=== PATIENT | male | born 1940 | race Caucasian/White ===

== ENCOUNTER 2021-01-20 13:31 | Inpatient (IN) | payer MEDICARE ==
[~2021-01-20] VITALS: Ht 177.8 cm; Wt 92.7 kg
[2021-01-20 14:40] LABS: BASOPHILS % (AUTO) 0.1 % (0-1); EOSINOPHILS % (AUTO) 0.1 % (0-6); HEMATOCRIT 37.8 % (42.0-52.0); HEMOGLOBIN 12.5 g/dl (14.0-17.9); LYMPHOCYTES # (AUTO) 1.2 X10'3 (1.1-4.8); LYMPHOCYTES % (AUTO) 7.2 % (21-51); MEAN CORPUSCULAR HEMOGLOBIN 30.2 PG (27.0-31.0); MEAN CORPUSCULAR HGB CONC 33.1 g/dL (33.0-36.5); MEAN CORPUSCULAR VOLUME 91.1 FL (78-98); MEAN PLATELET VOLUME 9.2 FL (7.4-10.4); MONOCYTES # (AUTO) 1.4 X10'3 (0-0.9); MONOCYTES % (AUTO) 8.3 % (2-12); NEUTROPHILS % (AUTO) 84.3 % (42-75); PLATELET COUNT 164 X10'3 (140-440); RED BLOOD COUNT 4.15 X10'6 (4.70-6.10); RED CELL DISTRIBUTION WIDTH 14.8 % (11.5-14.5); WHITE BLOOD COUNT 16.6 X10'3 (4.5-11.0)
[2021-01-20 14:57] LABS: ALANINE AMINOTRANSFERASE 165 U/L (12-78); ALBUMIN 2.5 G/DL (3.4-5.0); ALBUMIN/GLOBULIN RATIO 0.8 (1.1-1.5); ALKALINE PHOSPHATASE 396 IU/L (46-116); ANION GAP 9 (8-16); ASPARTATE AMINO TRANSFERASE 130 U/L (10-37); BILIRUBIN,TOTAL 3.6 MG/DL (0.1-1.0); BLOOD UREA NITROGEN 19 MG/DL (7-18); BUN/CREATININE RATIO 14.3 (5.4-32.0); CALCIUM 8.4 MG/DL (8.5-10.1); CHLORIDE 106 MMOL/L (99-107); CREATININE 1.33 MG/DL (0.60-1.10); GLUCOSE 112 MG/DL (70-104); LIPASE < 50 U/L (73-393); POTASSIUM 3.4 MMOL/L (3.5-5.1); SODIUM 139 MMOL/L (135-145); TOTAL CARBON DIOXIDE 24.4 MMOL/L (24-32); TOTAL PROTEIN 5.6 G/DL (6.4-8.2); eGFR 52 ML/MIN
[2021-01-20] MEDS ORDERED: magnesium hydroxide 30ml (MOM) UD suspension PO PRN (15:05)
[2021-01-20] MEDS ORDERED: acetaminophen 325mg tablet PO PRN ×2 (15:05)
[2021-01-20] MEDS ORDERED: ondansetron/PF 4mg/2ml inj IV PRN (15:05)
[2021-01-20] MEDS ORDERED: magnesium 4gm in 100ml NS 100 ML IV PRN (15:05)
[2021-01-20] MEDS ORDERED: bisacodyl 10mg suppository rectal RC PRN (15:05)
[2021-01-20] MEDS ORDERED: morphine 2 MG/ML inj. syringe IV PRN ×2 (15:05)
[2021-01-20] MEDS ORDERED: diphenhydrAMINE 25mg capsule PO PRN (15:05)
[2021-01-20] MEDS ORDERED: acetaminophen 650mg rectal suppository RC PRN (15:05)
[2021-01-20] MEDS ORDERED: HYDROcodone/acetaminophen 5mg/325mg tablet PO PRN (15:05)
[2021-01-20] MEDS ORDERED: magnesium 2GM in 50ml NS 50 ML IV PRN (15:05)
[2021-01-20] MEDS ORDERED: magnesium Cl slow-release 64mg tablet PO PRN (15:05)
[2021-01-20] MEDS ORDERED: potassium Cl 20 mEq SR tablet PO PRN (15:05)
[2021-01-20] MEDS ORDERED: potassium Cl 40MEQ/1/2NS 520ml 520 ML IV PRN ×2 (15:05)
[2021-01-20] MEDS ORDERED: mag hydrox/Alum hydrox/simeth 30ml oral suspension PO PRN (15:05)
[2021-01-20] MEDS ORDERED: ATOR40TA72 PO (15:24)
[2021-01-20] MEDS ORDERED: DULO60CA65 PO (15:24)
[2021-01-20] MEDS ORDERED: MEMA5TAB42 PO (15:24)
[2021-01-20] MEDS ORDERED: OMEP-50 PO (15:24)
[2021-01-20] MEDS ORDERED: QUIN20TA18 PO (15:24)
[2021-01-20] MEDS ORDERED: CLOP75TA34 PO (15:24)
[2021-01-20] MEDS ORDERED: LANTUS SQ (15:24)
[2021-01-20] MEDS ORDERED: METF-438 PO (15:24)
[2021-01-20] MEDS ORDERED: DOCU-345 PO (15:24)
[2021-01-20] MEDS ORDERED: AMLO5TAB16 PO (15:24)
[2021-01-20] MEDS ORDERED: DULA1.5P SQ (15:24)
[2021-01-20] MEDS ORDERED: NEBI5TAB10 PO (15:24)
[2021-01-20] MEDS ORDERED: GLIP10TA11 PO (15:24)
[2021-01-20 16:19] LABS: HEMATOCRIT 38.2 % (42.0-52.0); HEMOGLOBIN 12.7 g/dl (14.0-17.9); MEAN CORPUSCULAR HGB CONC 33.2 g/dL (33.0-36.5); MEAN CORPUSCULAR VOLUME 90.5 FL (78-98); MEAN PLATELET VOLUME 9.4 FL (7.4-10.4); PLATELET COUNT 171 X10'3 (140-440); RED BLOOD COUNT 4.22 X10'6 (4.70-6.10); RED CELL DISTRIBUTION WIDTH 15.2 % (11.5-14.5); WHITE BLOOD COUNT 16.6 X10'3 (4.5-11.0)
[2021-01-20] MEDS: piperacillin/tazo 3.375gm/50ml 50 ML IV SCH (16:51)
[2021-01-20] MEDS: pantoprazole 40MG/NS 100ML BAG 100 ML IV SCH ×2 (16:51→21:21)
[2021-01-20] MEDS: normal saline 1000ml 1,000 ML IV SCH (16:52)
[2021-01-20] MEDS ORDERED: MESSAGE TO PHARMACY PO ONE (18:05)
[2021-01-20] MEDS ORDERED: glucagon, human recombinant 1mg kit SUBCUT PRN (18:05)
[2021-01-20] MEDS ORDERED: dextrose ORAL solution 15 GM/59 ML bottle PO PRN ×2 (18:05)
[2021-01-20] MEDS ORDERED: dextrose 50%-water 50ml dispensing syringe IV PRN ×2 (18:05)
[2021-01-20] MEDS: metoprolol tartrate 25mg tablet PO SCH (20:00)
[2021-01-20] MEDS: K and/or MAG REPLACEMENT MC SCH (20:00)
[2021-01-20] MEDS: pantoprazole 40 MG vial IV SCH (20:05)
[2021-01-20] MEDS: insulin glargine (Lantus) pen - multi-dose SQ SCH (21:26)
[2021-01-20] MEDS: docusate sod 100mg capsule PO SCH (21:37)
[2021-01-20] MEDS: memantine 5mg tablet PO SCH (21:37)
[2021-01-21] VITALS (16 sets, daily range): BP systolic 122–179; BP diastolic 73–94
[2021-01-21] MEDS: piperacillin/tazo 3.375gm/50ml 50 ML IV SCH ×3 (00:18→16:28)
[2021-01-21] MEDS: pantoprazole 40MG/NS 100ML BAG 100 ML IV SCH ×4 (01:00→16:37)
[2021-01-21] MEDS: normal saline 1000ml 1,000 ML IV SCH ×3 (01:09→20:56)
[2021-01-21 05:00] LABS: BASOPHILS % (AUTO) 0.3 % (0-1); EOSINOPHILS # (AUTO) 0.2 X10'3 (0-0.9); EOSINOPHILS % (AUTO) 1.9 % (0-6); HEMATOCRIT 35.8 % (42.0-52.0); HEMOGLOBIN 12.1 g/dl (14.0-17.9); LYMPHOCYTES # (AUTO) 1.6 X10'3 (1.1-4.8); LYMPHOCYTES % (AUTO) 12.7 % (21-51); MEAN CORPUSCULAR HEMOGLOBIN 30.3 PG (27.0-31.0); MEAN CORPUSCULAR HGB CONC 33.8 g/dL (33.0-36.5); MEAN CORPUSCULAR VOLUME 89.9 FL (78-98); MEAN PLATELET VOLUME 9.4 FL (7.4-10.4); MONOCYTES # (AUTO) 1.1 X10'3 (0-0.9); MONOCYTES % (AUTO) 8.3 % (2-12); NEUTROPHILS # (AUTO) 9.9 X10'3 (1.8-7.7); NEUTROPHILS % (AUTO) 76.8 % (42-75); PLATELET COUNT 153 X10'3 (140-440); RED BLOOD COUNT 3.98 X10'6 (4.70-6.10); RED CELL DISTRIBUTION WIDTH 15.3 % (11.5-14.5); WHITE BLOOD COUNT 12.8 X10'3 (4.5-11.0)
[2021-01-21 05:17] LABS: ALANINE AMINOTRANSFERASE 136 U/L (12-78); ALBUMIN 2.4 G/DL (3.4-5.0); ALBUMIN/GLOBULIN RATIO 0.7 (1.1-1.5); ALKALINE PHOSPHATASE 348 IU/L (46-116); ANION GAP 12 (8-16); ASPARTATE AMINO TRANSFERASE 96 U/L (10-37); BILIRUBIN,TOTAL 3.1 MG/DL (0.1-1.0); BLOOD UREA NITROGEN 19 MG/DL (7-18); BUN/CREATININE RATIO 12.2 (5.4-32.0); CALCIUM 8.5 MG/DL (8.5-10.1); CHLORIDE 106 MMOL/L (99-107); CHOL/HDL RATIO 2.6 (0.00-4.99); CHOLESTEROL 113 MG/DL (0-200); CREATININE 1.56 MG/DL (0.60-1.10); GLUCOSE 124 MG/DL (70-104); HDL CHOLESTEROL 43 MG/DL (35-60); LDL CHOLESTEROL 49 MG/DL (50-100); MAGNESIUM 1.8 MG/DL (1.5-2.4); PHOSPHORUS 3.5 MG/DL (2.3-4.5); POTASSIUM 3.2 MMOL/L (3.5-5.1); SODIUM 141 MMOL/L (135-145); TOTAL CARBON DIOXIDE 23.3 MMOL/L (24-32); TOTAL PROTEIN 5.8 G/DL (6.4-8.2); TRIGLYCERIDES 82 MG/DL (20-135); eGFR 43 ML/MIN
[2021-01-21] MEDS: K and/or MAG REPLACEMENT MC SCH ×2 (08:00→20:58)
[2021-01-21 08:13] LABS: HEMATOCRIT 37.6 % (42.0-52.0); HEMOGLOBIN 12.5 g/dl (14.0-17.9); MEAN CORPUSCULAR HGB CONC 33.4 g/dL (33.0-36.5); MEAN CORPUSCULAR VOLUME 89.9 FL (78-98); MEAN PLATELET VOLUME 9.3 FL (7.4-10.4); PLATELET COUNT 162 X10'3 (140-440); RED BLOOD COUNT 4.18 X10'6 (4.70-6.10); RED CELL DISTRIBUTION WIDTH 15.3 % (11.5-14.5); WHITE BLOOD COUNT 12.5 X10'3 (4.5-11.0)
[2021-01-21] MEDS: pantoprazole 40 MG vial IV SCH ×2 (09:28→20:55)
[2021-01-21] MEDS: docusate sod 100mg capsule PO SCH ×3 (09:56→20:56)
[2021-01-21] MEDS: duloxetine 30mg CAPSULE.DR PO SCH (09:56)
[2021-01-21] MEDS: atorvastatin 20mg tablet PO SCH (09:57)
[2021-01-21] MEDS: metoprolol tartrate 25mg tablet PO SCH ×2 (09:57→20:56)
[2021-01-21] MEDS: amLODIPine 5mg tablet PO SCH (09:57)
[2021-01-21] MEDS: lisinopril 20mg tablet PO SCH (09:58)
[2021-01-21 10:13] LABS: CLARITY,URINE CLEAR (Clear); COLOR,URINE YELLOW (Yellow); GLUCOSE, URINE NEGATIVE (Neg); KETONES,URINE NEGATIVE (Neg); LEUKOCYTE ESTERASE ,URINE NEGATIVE (Neg); NITRITES, URINE NEGATIVE (Neg); OCCULT BLOOD,URINE NEGATIVE (Neg); PROTEIN,URINE TRACE mg/dl (Neg)
[2021-01-21 10:15] LABS: UA COLLECTION TYPE NON-SPECIFIED
[2021-01-21 10:30] LABS: BACTERIA,URINE FEW /HPF (Neg); HYALINE CASTS 0-3 /LPF (NEGATIVE); RBC,URINE 0-2 /HPF (0-2); SQUAMOUS EPITHELIAL CELL,UR FEW /LPF (FEW); WBC,URINE 0-4 /HPF (0-4)
[2021-01-21 11:48] LABS: HEMATOCRIT 38.1 % (42.0-52.0); HEMOGLOBIN 12.8 g/dl (14.0-17.9); MEAN CORPUSCULAR HEMOGLOBIN 30.7 PG (27.0-31.0); MEAN CORPUSCULAR HGB CONC 33.5 g/dL (33.0-36.5); MEAN CORPUSCULAR VOLUME 91.6 FL (78-98); MEAN PLATELET VOLUME 9.3 FL (7.4-10.4); PLATELET COUNT 160 X10'3 (140-440); RED BLOOD COUNT 4.17 X10'6 (4.70-6.10); RED CELL DISTRIBUTION WIDTH 15.8 % (11.5-14.5); WHITE BLOOD COUNT 12.2 X10'3 (4.5-11.0)
[2021-01-21] MEDS: potassium Cl 20 mEq SR tablet PO PRN ×2 (13:34→20:55)
[2021-01-21] MEDS ORDERED: iohexol 300 MG/1 ML 50ml polymer ONE (15:45)
[2021-01-21] MEDS ORDERED: glucagon, human recombinant 1mg kit ONE ×2 (15:45→17:36)
--- NOTE | 2021-01-21 16:57 | NUR ---
PT TO OR FOR PROCEDURE.
--- NOTE | 2021-01-21 17:20 | NUR ---
Protonix gtt running at 8ml/hr not 20ml/hr which is what the IV spreadsheet is showing.
[2021-01-21] MEDS ORDERED: sevoflurane 250ml liquid IH ONE (17:36)
[2021-01-21] MEDS ORDERED: fentaNYL/PF 50MCG/1 ML 2ML syringe ONE (17:37)
[2021-01-21] MEDS ORDERED: midazolam 1 mg/ML 2ml injection ONE (17:38)
[2021-01-21] MEDS ORDERED: rocuronium 10mg/ml inj IV ONE (17:43)
[2021-01-21] MEDS ORDERED: propofol inj 20 ML IV ONE (17:43)
[2021-01-21] MEDS ORDERED: ondansetron/PF 4mg/2ml inj IV PRN (18:10)
[2021-01-21] MEDS ORDERED: morphine 4 MG/ML inj SYRINge IV PRN (18:10)
[2021-01-21] MEDS ORDERED: ringers solution, lacted 1,000 ML IV SCH (18:10)
[2021-01-21] MEDS ORDERED: proCHLORperazine 10 MG/2 ml inj IV PRN (18:10)
[2021-01-21] MEDS ORDERED: meperidine/PF 25mg/ml syringe IV PRN ×3 (18:10)
[2021-01-21] MEDS ORDERED: morphine 2 MG/ML inj. syringe IV PRN (18:10)
--- NOTE | 2021-01-21 18:30 | NUR ---
Problems reprioritized. Patient report given, questions answered & plan of care reviewed with AFSHIN MAGDALENO.
[2021-01-21] MEDS ORDERED: neostigmine methylsulfate 1 MG/ML 10ml vial ONE (18:37)
[2021-01-21] MEDS ORDERED: glycopyrrolate 0.2mg/ml inj ONE (18:40)
--- NOTE | 2021-01-21 18:41 | NUR ---
[place]ee documentation: I have reviewed and agree with all interventions, assessments performed and documented by AFSHIN Roberson.
--- NOTE | 2021-01-21 18:58 | NUR ---
Received from OR via SURGICAL BED , accompanied by Anesthesiologist REMI and report given by Anesthesiolgist. PATIENT WITH 20G PIV IN BILATERAL AC'S VSS. DENIES PAIN. 10L MASK ON WITH 100% SATURATIONS. SCDS DONNED IN RR. ONE PAIR OF SLIPPERS PRESENT. NO GLASSES OR HEARING AIDES PRESENT. Addendum: 01/21/21 at 1908 by Nicanor Giron RN, RN Amended: Links added.
--- NOTE | 2021-01-21 18:58 | NUR ---
[facility] OP OF 138 Addendum: 01/21/21 at 1922 by Nicanor Giron RN RN Amended: Links added.
--- NOTE | 2021-01-21 19:38 | NUR ---
PATIENT HAS MET ALL CRITERIA FOR TRANSFER TO THE SURGICAL/CHRISTAL/PCU/ORTHO/ICU FLOOR. VSS. DRESSINGS INTACT. BED LOW, CALL LIGHT PRESENT AND 2 RAILS UP. RN PRESENT TO ACCEPT CARE OF PATIENT AND REPORT HAS BEEN CALLED. ALL QUESTIONS ANSWERED TO ACCEPTING RN. FAMILY MET US IN ROOM 3024A. VSS. ONE PAIR OF BROWN SLIPPERS AT BEDSIDE. AFSHIN MAGDALENO PRESENT TO ACCEPT CARE OF PATIENT. Addendum: 01/21/21 at 1949 by Nicanor Ley - AFSHIN PEPE Amended: Links added.
[2021-01-21] MEDS ORDERED: pantoprazole 40 MG vial IV SCH (20:00)
[2021-01-21] MEDS: insulin glargine (Lantus) pen - multi-dose SQ SCH (20:40)
[2021-01-21] MEDS: HYDROmorphone inj. 0.5 MG/0.5 ML DISP.SYRIN IV PRN (20:55)
[2021-01-21] MEDS: memantine 5mg tablet PO SCH (20:55)
[2021-01-21] MEDS: lactobacillus rhamnosus 10,000 MMU CELLS/CAPSULE PO SCH (20:58)
[2021-01-22] VITALS (18 sets, daily range): BP systolic 138–163; BP diastolic 72–103
[2021-01-22] MEDS: HYDROmorphone inj. 0.5 MG/0.5 ML DISP.SYRIN IV PRN (04:39)
--- NOTE | 2021-01-22 06:00 | NUR ---
Patient in room PCU 3024. I have received report from RASTA PEPE and had the opportunity to ask questions and assume patient care.
[2021-01-22] MEDS: normal saline 1000ml 1,000 ML IV SCH ×2 (07:05→17:05)
[2021-01-22 07:55] LABS: BASOPHILS % (AUTO) 0.3 % (0-1); EOSINOPHILS # (AUTO) 0.1 X10'3 (0-0.9); EOSINOPHILS % (AUTO) 1.3 % (0-6); HEMATOCRIT 39.7 % (42.0-52.0); HEMOGLOBIN 13.2 g/dl (14.0-17.9); LYMPHOCYTES # (AUTO) 1.1 X10'3 (1.1-4.8); MEAN CORPUSCULAR HEMOGLOBIN 30.3 PG (27.0-31.0); MEAN CORPUSCULAR HGB CONC 33.3 g/dL (33.0-36.5); MEAN PLATELET VOLUME 9.8 FL (7.4-10.4); MONOCYTES % (AUTO) 9.3 % (2-12); NEUTROPHILS # (AUTO) 8.1 X10'3 (1.8-7.7); NEUTROPHILS % (AUTO) 78.1 % (42-75); PLATELET COUNT 192 X10'3 (140-440); RED BLOOD COUNT 4.36 X10'6 (4.70-6.10); RED CELL DISTRIBUTION WIDTH 15.4 % (11.5-14.5); WHITE BLOOD COUNT 10.3 X10'3 (4.5-11.0)
[2021-01-22] MEDS: K and/or MAG REPLACEMENT MC SCH ×2 (08:00→20:00)
[2021-01-22] MEDS: piperacillin/tazo 3.375gm/50ml 50 ML IV SCH ×3 (08:15→20:00)
[2021-01-22] MEDS: lactobacillus rhamnosus 10,000 MMU CELLS/CAPSULE PO SCH ×2 (08:18→20:00)
[2021-01-22] MEDS: pantoprazole 40 MG vial IV SCH ×2 (08:18→20:00)
[2021-01-22] MEDS: atorvastatin 20mg tablet PO SCH (08:18)
[2021-01-22 08:19] LABS: ALANINE AMINOTRANSFERASE 118 U/L (12-78); ALBUMIN 2.6 G/DL (3.4-5.0); ALBUMIN/GLOBULIN RATIO 0.7 (1.1-1.5); ALKALINE PHOSPHATASE 415 IU/L (46-116); ANION GAP 17 (8-16); ASPARTATE AMINO TRANSFERASE 85 U/L (10-37); BILIRUBIN,TOTAL 3.7 MG/DL (0.1-1.0); BLOOD UREA NITROGEN 17 MG/DL (7-18); BUN/CREATININE RATIO 14.8 (5.4-32.0); CALCIUM 8.5 MG/DL (8.5-10.1); CHLORIDE 104 MMOL/L (99-107); CREATININE 1.15 MG/DL (0.60-1.10); GLUCOSE 123 MG/DL (70-104); MAGNESIUM 1.9 MG/DL (1.5-2.4); PHOSPHORUS 3.6 MG/DL (2.3-4.5); POTASSIUM 3.9 MMOL/L (3.5-5.1); SODIUM 140 MMOL/L (135-145); TOTAL CARBON DIOXIDE 19.1 MMOL/L (24-32); TOTAL PROTEIN 6.4 G/DL (6.4-8.2); eGFR 62 ML/MIN
[2021-01-22] MEDS: metoprolol tartrate 25mg tablet PO SCH ×2 (08:19→20:00)
[2021-01-22] MEDS: duloxetine 30mg CAPSULE.DR PO SCH (08:19)
[2021-01-22] MEDS: lisinopril 20mg tablet PO SCH (08:19)
[2021-01-22] MEDS: docusate sod 100mg capsule PO SCH ×3 (08:19→21:15)
[2021-01-22] MEDS: amLODIPine 5mg tablet PO SCH (08:19)
[2021-01-22] MEDS ORDERED: midazolam 1 mg/ML 2ml injection ONE ×2 (15:39→16:20)
[2021-01-22] MEDS ORDERED: LIDOcaine 1%/PF 5ML 10 MG/ML VIAL ONE (15:40)
[2021-01-22] MEDS ORDERED: fentaNYL/PF 50MCG/1 ML 2ML syringe ONE ×3 (15:40→16:00)
[2021-01-22] MEDS ORDERED: heparin 1,000unit/ml 10ml vial 10 ML ONE (15:41)
[2021-01-22] MEDS ORDERED: heparin sodium, porcine/PF 100unit/ml 5ML syringe ONE (15:47)
--- NOTE | 2021-01-22 15:59 | NUR ---
Malnutrition consult: Pt reports 14-23 lb wt loss with decreased appetite per malnutrition risk screen with RN. Pt seen at bedside, reports UBW ~225 lbs though states it does fluctuate ~5 lbs from day to day. ABW 204 lbs per pt which was taken two days ago at home. Pt reports wt loss r/t decreased PO intake as food has been off-putting, though does report he has been eating small frequent meals to optimize PO intake. Pt with no visible fat or muscle wasting. No documented decrease in muscle strength or edema. Pt currently lacks a minimum of two criteria for malnutrition, though at high risk given recent dx of pancreatic cancer. Pt provided with recommendations for optimizing PO intake while with a low appetite as well as verbal DM education (current A1c is 8.0%, well controlled for age), ONS coupons, and RD contact information. Pt denies food allergies and predicts possible difficulty with food when diet is advanced d/t sore throat secondary to ERCP. Pt encouraged to inform RN of this if still occurring once diet is advanced. Pt with an active clear liquid diet order however is actually NPO. Will continue to follow. Addendum: 01/22/21 at [address] Amended: Links added.
[2021-01-22] MEDS ORDERED: glucagon, human recombinant 1mg kit ONE (16:00)
[2021-01-22] MEDS ORDERED: LIDOcaine Viscous 15ml cup ONE (16:00)
[2021-01-22] MEDS ORDERED: MIDAZolam 1 MG/ML 5ML VIAL ONE (16:00)
[2021-01-22] MEDS ORDERED: iohexol 300 MG/1 ML 50ml polymer ONE (16:00)
[2021-01-22] MEDS ORDERED: diphenhydrAMINE 50 mg/ml inj ONE (16:52)
[2021-01-22] MEDS: insulin glargine (Lantus) pen - multi-dose SQ SCH (21:00)
[2021-01-22] MEDS: memantine 5mg tablet PO SCH (21:15)
[2021-01-23 03:00] VITALS: BP 139/97
[2021-01-23] MEDS: piperacillin/tazo 3.375gm/50ml 50 ML IV SCH ×3 (03:00→16:07)
[2021-01-23] MEDS: normal saline 1000ml 1,000 ML IV SCH ×3 (03:05→23:58)
--- NOTE | 2021-01-23 06:00 | NUR ---
Patient in room PCU 3024. I have received report from ANGELIA PEPE and had the opportunity to ask questions and assume patient care.
[2021-01-23 06:59] VITALS: BP 129/73
[2021-01-23 07:34] LABS: BASOPHILS % (AUTO) 0.3 % (0-1); EOSINOPHILS # (AUTO) 0.2 X10'3 (0-0.9); EOSINOPHILS % (AUTO) 2.2 % (0-6); HEMATOCRIT 38.8 % (42.0-52.0); HEMOGLOBIN 13.3 g/dl (14.0-17.9); LYMPHOCYTES # (AUTO) 0.9 X10'3 (1.1-4.8); MEAN CORPUSCULAR HGB CONC 34.4 g/dL (33.0-36.5); MEAN PLATELET VOLUME 9.4 FL (7.4-10.4); MONOCYTES # (AUTO) 0.8 X10'3 (0-0.9); MONOCYTES % (AUTO) 10.9 % (2-12); NEUTROPHILS # (AUTO) 5.6 X10'3 (1.8-7.7); NEUTROPHILS % (AUTO) 74.6 % (42-75); PLATELET COUNT 209 X10'3 (140-440); RED BLOOD COUNT 4.31 X10'6 (4.70-6.10); RED CELL DISTRIBUTION WIDTH 15.3 % (11.5-14.5); WHITE BLOOD COUNT 7.5 X10'3 (4.5-11.0)
[2021-01-23 07:48] LABS: ALANINE AMINOTRANSFERASE 108 U/L (12-78); ALBUMIN 2.5 G/DL (3.4-5.0); ALBUMIN/GLOBULIN RATIO 0.6 (1.1-1.5); ALKALINE PHOSPHATASE 460 IU/L (46-116); ANION GAP 13 (8-16); ASPARTATE AMINO TRANSFERASE 79 U/L (10-37); BILIRUBIN,TOTAL 3.1 MG/DL (0.1-1.0); BLOOD UREA NITROGEN 13 MG/DL (7-18); BUN/CREATININE RATIO 10.7 (5.4-32.0); CALCIUM 8.6 MG/DL (8.5-10.1); CHLORIDE 100 MMOL/L (99-107); CREATININE 1.22 MG/DL (0.60-1.10); GLUCOSE 209 MG/DL (70-104); MAGNESIUM 1.8 MG/DL (1.5-2.4); PHOSPHORUS 2.7 MG/DL (2.3-4.5); POTASSIUM 3.6 MMOL/L (3.5-5.1); SODIUM 135 MMOL/L (135-145); TOTAL PROTEIN 6.4 G/DL (6.4-8.2); eGFR 57 ML/MIN
[2021-01-23] MEDS: K and/or MAG REPLACEMENT MC SCH ×2 (08:00→20:00)
[2021-01-23] MEDS: pantoprazole 40 MG vial IV SCH ×2 (08:09→19:29)
[2021-01-23] MEDS: duloxetine 30mg CAPSULE.DR PO SCH (08:10)
[2021-01-23] MEDS: lisinopril 20mg tablet PO SCH (08:10)
[2021-01-23] MEDS: HYDROcodone/acetaminophen 10/325mg tab PO PRN (08:10)
[2021-01-23] MEDS: lactobacillus rhamnosus 10,000 MMU CELLS/CAPSULE PO SCH ×2 (08:11→19:27)
[2021-01-23] MEDS: metoprolol tartrate 25mg tablet PO SCH ×2 (08:11→19:29)
[2021-01-23] MEDS: amLODIPine 5mg tablet PO SCH (08:11)
[2021-01-23] MEDS: atorvastatin 20mg tablet PO SCH (08:11)
[2021-01-23] MEDS: docusate sod 100mg capsule PO SCH ×3 (08:11→21:59)
[2021-01-23] MEDS: insulin Lispro (HumaLOG) vial - multi-dose SQ SCH ×3 (10:38→19:33)
[2021-01-23 11:53] VITALS: BP 143/86
[2021-01-23 15:42] VITALS: BP 126/79
[2021-01-23 18:00] VITALS: BP 130/69
--- NOTE | 2021-01-23 18:05 | NUR ---
Patient in room PCU 3024. I have received report from Aracely PEPE and had the opportunity to ask questions and assume patient care.
[2021-01-23] MEDS: enoxaparin 40mg/0.4ml syringe SUBCUT SCH (19:30)
[2021-01-23] MEDS: HYDROmorphone inj. 0.5 MG/0.5 ML DISP.SYRIN IV PRN (19:34)
[2021-01-23] MEDS: memantine 5mg tablet PO SCH (21:59)
[2021-01-23] MEDS: insulin glargine (Lantus) pen - multi-dose SQ SCH (22:01)
[2021-01-24] MEDS: piperacillin/tazo 3.375gm/50ml 50 ML IV SCH ×3 (00:10→16:45)
[2021-01-24] MEDS: HYDROmorphone inj. 0.5 MG/0.5 ML DISP.SYRIN IV PRN ×2 (00:15→08:12)
[2021-01-24 02:00] VITALS: BP 138/66
[2021-01-24 06:00] VITALS: BP 170/97
--- NOTE | 2021-01-24 06:28 | NUR ---
Problems reprioritized. Patient report given, questions answered & plan of care reviewed with Kimberly PEPE.
[2021-01-24 07:12] LABS: BASOPHILS % (AUTO) 0.4 % (0-1); EOSINOPHILS # (AUTO) 0.5 X10'3 (0-0.9); EOSINOPHILS % (AUTO) 6.3 % (0-6); HEMATOCRIT 41.2 % (42.0-52.0); HEMOGLOBIN 14.1 g/dl (14.0-17.9); LYMPHOCYTES # (AUTO) 1.4 X10'3 (1.1-4.8); MEAN CORPUSCULAR HEMOGLOBIN 30.5 PG (27.0-31.0); MEAN CORPUSCULAR HGB CONC 34.3 g/dL (33.0-36.5); MEAN PLATELET VOLUME 8.7 FL (7.4-10.4); MONOCYTES % (AUTO) 13.3 % (2-12); NEUTROPHILS # (AUTO) 4.7 X10'3 (1.8-7.7); PLATELET COUNT 239 X10'3 (140-440); RED BLOOD COUNT 4.63 X10'6 (4.70-6.10); RED CELL DISTRIBUTION WIDTH 15.1 % (11.5-14.5); WHITE BLOOD COUNT 7.6 X10'3 (4.5-11.0)
[2021-01-24 07:36] LABS: ALANINE AMINOTRANSFERASE 109 U/L (12-78); ALBUMIN 2.7 G/DL (3.4-5.0); ALBUMIN/GLOBULIN RATIO 0.6 (1.1-1.5); ALKALINE PHOSPHATASE 495 IU/L (46-116); ANION GAP 11 (8-16); ASPARTATE AMINO TRANSFERASE 83 U/L (10-37); BILIRUBIN,TOTAL 3.1 MG/DL (0.1-1.0); BLOOD UREA NITROGEN 7 MG/DL (7-18); BUN/CREATININE RATIO 6.1 (5.4-32.0); CALCIUM 9.1 MG/DL (8.5-10.1); CHLORIDE 101 MMOL/L (99-107); CREATININE 1.15 MG/DL (0.60-1.10); GLUCOSE 157 MG/DL (70-104); MAGNESIUM 1.9 MG/DL (1.5-2.4); PHOSPHORUS 3.2 MG/DL (2.3-4.5); POTASSIUM 3.2 MMOL/L (3.5-5.1); SODIUM 137 MMOL/L (135-145); TOTAL CARBON DIOXIDE 25.1 MMOL/L (24-32); eGFR 62 ML/MIN
[2021-01-24] MEDS: K and/or MAG REPLACEMENT MC SCH ×2 (08:00→20:00)
[2021-01-24] MEDS: clopidogrel 75mg tablet PO SCH (08:00)
[2021-01-24] MEDS: docusate sod 100mg capsule PO SCH ×3 (08:15→21:50)
[2021-01-24] MEDS: pantoprazole 40 MG vial IV SCH ×2 (08:15→21:50)
[2021-01-24] MEDS: amLODIPine 5mg tablet PO SCH (08:17)
[2021-01-24] MEDS: lisinopril 20mg tablet PO SCH (08:17)
[2021-01-24] MEDS: duloxetine 30mg CAPSULE.DR PO SCH (08:17)
[2021-01-24] MEDS: lactobacillus rhamnosus 10,000 MMU CELLS/CAPSULE PO SCH ×2 (08:17→21:49)
[2021-01-24] MEDS: atorvastatin 20mg tablet PO SCH (08:18)
[2021-01-24] MEDS: metoprolol tartrate 25mg tablet PO SCH ×2 (08:18→21:50)
[2021-01-24] MEDS ORDERED: magnesium Cl slow-release 64mg tablet PO PRN (08:30)
[2021-01-24] MEDS ORDERED: potassium Cl 20 mEq SR tablet PO PRN (08:30)
[2021-01-24] MEDS: potassium Cl 20 mEq SR tablet PO PRN ×3 (08:40→17:37)
[2021-01-24] MEDS: insulin Lispro (HumaLOG) vial - multi-dose SQ SCH ×3 (08:43→19:19)
[2021-01-24] MEDS: normal saline 1000ml 1,000 ML IV SCH ×2 (09:28→17:05)
[2021-01-24 11:00] VITALS: BP 166/88
[2021-01-24] MEDS: HYDROcodone/acetaminophen 10/325mg tab PO PRN ×3 (12:02→21:56)
[2021-01-24 15:00] VITALS: BP 139/93
--- NOTE | 2021-01-24 15:59 | NUR ---
Patient in room PCU 3024. I have received report from Terrence PEPE at bedside and had the opportunity to ask questions and assume patient care.
--- NOTE | 2021-01-24 16:05 | NUR ---
Problems reprioritized. Patient report given, questions answered & plan of care reviewed with Yanna PEPE. Patient stable at transfer of care.
[2021-01-24 18:00] VITALS: BP 152/103
--- NOTE | 2021-01-24 18:07 | NUR ---
Problems reprioritized. Patient report given, questions answered & plan of care reviewed with Carrol RN at bedside.
--- NOTE | 2021-01-24 18:15 | NUR ---
Patient in room PCU 3024. I have received report from Melissa PEPE and had the opportunity to ask questions and assume patient care.
[2021-01-24] MEDS: insulin glargine (Lantus) pen - multi-dose SQ SCH (21:49)
[2021-01-24] MEDS: memantine 5mg tablet PO SCH (21:49)
[2021-01-24] MEDS: enoxaparin 40mg/0.4ml syringe SUBCUT SCH (21:51)
[2021-01-25] MEDS: normal saline 1000ml 1,000 ML IV SCH ×2 (01:05→15:05)
[2021-01-25] MEDS: piperacillin/tazo 3.375gm/50ml 50 ML IV SCH ×4 (01:05→23:55)
[2021-01-25 02:00] VITALS: BP 133/82
[2021-01-25 06:19] LABS: BASOPHILS % (AUTO) 0.6 % (0-1); EOSINOPHILS # (AUTO) 0.5 X10'3 (0-0.9); EOSINOPHILS % (AUTO) 7.4 % (0-6); HEMATOCRIT 41.2 % (42.0-52.0); HEMOGLOBIN 13.9 g/dl (14.0-17.9); LYMPHOCYTES # (AUTO) 1.4 X10'3 (1.1-4.8); LYMPHOCYTES % (AUTO) 19.6 % (21-51); MEAN CORPUSCULAR HEMOGLOBIN 30.8 PG (27.0-31.0); MEAN CORPUSCULAR HGB CONC 33.8 g/dL (33.0-36.5); MEAN PLATELET VOLUME 8.8 FL (7.4-10.4); MONOCYTES % (AUTO) 13.6 % (2-12); NEUTROPHILS # (AUTO) 4.2 X10'3 (1.8-7.7); NEUTROPHILS % (AUTO) 58.8 % (42-75); PLATELET COUNT 232 X10'3 (140-440); RED BLOOD COUNT 4.52 X10'6 (4.70-6.10); RED CELL DISTRIBUTION WIDTH 15.3 % (11.5-14.5); WHITE BLOOD COUNT 7.1 X10'3 (4.5-11.0)
--- NOTE | 2021-01-25 06:20 | NUR ---
Problems reprioritized. Patient report given, questions answered & plan of care reviewed with Yoni PEPE.
[2021-01-25 06:24] LABS: ALANINE AMINOTRANSFERASE 96 U/L (12-78); ALBUMIN 2.7 G/DL (3.4-5.0); ALBUMIN/GLOBULIN RATIO 0.7 (1.1-1.5); ALKALINE PHOSPHATASE 481 IU/L (46-116); ANION GAP 11 (8-16); ASPARTATE AMINO TRANSFERASE 78 U/L (10-37); BILIRUBIN,TOTAL 2.6 MG/DL (0.1-1.0); BLOOD UREA NITROGEN 4 MG/DL (7-18); BUN/CREATININE RATIO 3.2 (5.4-32.0); CALCIUM 9.3 MG/DL (8.5-10.1); CHLORIDE 103 MMOL/L (99-107); CREATININE 1.24 MG/DL (0.60-1.10); GLUCOSE 137 MG/DL (70-104); PHOSPHORUS 3.7 MG/DL (2.3-4.5); POTASSIUM 3.4 MMOL/L (3.5-5.1); SODIUM 140 MMOL/L (135-145); TOTAL CARBON DIOXIDE 25.8 MMOL/L (24-32); TOTAL PROTEIN 6.8 G/DL (6.4-8.2); eGFR 56 ML/MIN
[2021-01-25 07:00] VITALS: BP 155/102
[2021-01-25] MEDS: K and/or MAG REPLACEMENT MC SCH ×2 (08:00→20:00)
[2021-01-25] MEDS: duloxetine 30mg CAPSULE.DR PO SCH (08:01)
[2021-01-25] MEDS: metoprolol tartrate 25mg tablet PO SCH ×2 (08:01→19:41)
[2021-01-25] MEDS: docusate sod 100mg capsule PO SCH ×3 (08:01→21:35)
[2021-01-25] MEDS: lactobacillus rhamnosus 10,000 MMU CELLS/CAPSULE PO SCH ×2 (08:01→19:41)
[2021-01-25] MEDS: amLODIPine 5mg tablet PO SCH (08:02)
[2021-01-25] MEDS: lisinopril 20mg tablet PO SCH (08:02)
[2021-01-25] MEDS: atorvastatin 20mg tablet PO SCH (08:02)
[2021-01-25] MEDS: clopidogrel 75mg tablet PO SCH (08:02)
[2021-01-25] MEDS: pantoprazole 40 MG vial IV SCH ×2 (08:03→19:42)
[2021-01-25] MEDS: insulin Lispro (HumaLOG) vial - multi-dose SQ SCH ×3 (08:21→18:55)
[2021-01-25] MEDS: potassium Cl 20 mEq SR tablet PO PRN ×2 (10:01→19:41)
[2021-01-25 11:00] VITALS: BP 129/87
[2021-01-25] MEDS: HYDROcodone/acetaminophen 10/325mg tab PO PRN ×2 (16:02→21:36)
[2021-01-25 18:00] VITALS: BP 141/92
--- NOTE | 2021-01-25 18:45 | NUR ---
Problems reprioritized. Patient report given, questions answered & plan of care reviewed with Princess PEPE .
[2021-01-25] MEDS: insulin glargine (Lantus) pen - multi-dose SQ SCH (21:33)
[2021-01-25] MEDS: enoxaparin 40mg/0.4ml syringe SUBCUT SCH (21:35)
[2021-01-25] MEDS: memantine 5mg tablet PO SCH (21:37)
[2021-01-25 22:00] VITALS: BP 154/97
[2021-01-26] VITALS (7 sets, daily range): BP systolic 118–172; BP diastolic 80–108
[2021-01-26] MEDS: normal saline 1000ml 1,000 ML IV SCH ×3 (01:05→21:05)
--- NOTE | 2021-01-26 04:16 | NUR ---
Received call from Marilu from [facility] Transfer requesting discharge summary faxed to [phone]
--- NOTE | 2021-01-26 04:37 | NUR ---
Patient requested a shower. I covered port sites with gauze and tegaderm and tech covered iv site with cellophane wrap. Patient requested privacy in shower and verbalized understanding of call light if assistance is needed. Shower chair provided, floor covered with towel.
--- NOTE | 2021-01-26 05:39 | NUR ---
MESSAGE: 3024A Luc[facility] C[facility] transport needs discharge summary dated within 24 hours to process transfer. Current D/C summary is dated 01/23/21. Please complete D/C summary dated 01/25 or 01/26. Thank you! Princess [id number]
--- NOTE | 2021-01-26 06:25 | NUR ---
Problems reprioritized. Patient report given, questions answered & plan of care reviewed with Lynnette PEPE.
[2021-01-26] MEDS: clopidogrel 75mg tablet PO SCH ×2 (08:00→08:29)
[2021-01-26] MEDS: K and/or MAG REPLACEMENT MC SCH ×2 (08:00→20:00)
[2021-01-26] MEDS: piperacillin/tazo 3.375gm/50ml 50 ML IV SCH ×3 (08:27→23:24)
[2021-01-26] MEDS: lisinopril 20mg tablet PO SCH (08:28)
[2021-01-26] MEDS: atorvastatin 20mg tablet PO SCH (08:28)
[2021-01-26] MEDS: metoprolol tartrate 25mg tablet PO SCH ×2 (08:28→20:59)
[2021-01-26] MEDS: amLODIPine 5mg tablet PO SCH (08:28)
[2021-01-26] MEDS: lactobacillus rhamnosus 10,000 MMU CELLS/CAPSULE PO SCH ×2 (08:28→21:00)
[2021-01-26] MEDS: pantoprazole 40 MG vial IV SCH ×2 (08:29→20:59)
[2021-01-26] MEDS: duloxetine 30mg CAPSULE.DR PO SCH (08:29)
[2021-01-26] MEDS: docusate sod 100mg capsule PO SCH ×3 (08:29→20:59)
--- NOTE | 2021-01-26 08:33 | NUR ---
Pt refused plavix and humalog. pt refused plavix due to possible surgery at hospital transferring to; pt refused breakfast for same reason, thus refused humalog.
[2021-01-26] MEDS: HYDROcodone/acetaminophen 10/325mg tab PO PRN ×3 (08:43→21:00)
--- NOTE | 2021-01-26 17:32 | NUR ---
Mariposa at transfer center called to state: [facility] no longer available. that pt will have to wait until bed opens. Mariposa: [facility] PCT/community organization aide called [facility] and spoke to charge nurse; confirmed, bed no longer available.
--- NOTE | 2021-01-26 17:45 | NUR ---
Spoke with pt. explained no current bed available at [facility]. Pt not happy. pt's on speaker phone on his personal cell phone and notified concurrently. audibly not please with situation. Pt and on cell phone given a period of time to discuss what they would like to do with plan of care from here.
--- NOTE | 2021-01-26 18:20 | NUR ---
Patient in room PCU 3024. I have received report from Lynnette PEPE and had the opportunity to ask questions and assume patient care.
--- NOTE | 2021-01-26 18:43 | NUR ---
Problems reprioritized. Patient report given, questions answered & plan of care reviewed with Princess Prince. Pt's Dr. Dr. Becker called inquiring why pt has not been transported for procedure at [facility]. Dr. Becker concerned and stated "Pt does not need to be admitted to a bed, he could even go down there, get the procedure and then be discharged. "
[2021-01-26] MEDS: insulin Lispro (HumaLOG) vial - multi-dose SQ SCH ×2 (18:51→21:15)
--- NOTE | 2021-01-26 19:36 | NUR ---
Dr Gutiérrez at bedside, did not realized patient was still here. He thought patient was transported Monday. He said that if there is no bed by tomorow patient should be discharged and transport arranged for outpatient procedure. He asked that I call transfer center and find out if he can get a bed and have RN sup find local transport for tomorrow. He was told patient's family is in [place] waiting for patient.
--- NOTE | 2021-01-26 20:10 | NUR ---
Dr Gutiérrez wants to hold 40 lovenox, he is going to his office to research patient as he thought patient had a PE and should be on increased dosage. He will call back shortly.
--- NOTE | 2021-01-26 20:28 | NUR ---
Dr Gutiérrez called to report no findings of PE, ok to give lovenox tonight.
[2021-01-26] MEDS: memantine 5mg tablet PO SCH (21:00)
[2021-01-26] MEDS: enoxaparin 40mg/0.4ml syringe SUBCUT SCH (21:01)
[2021-01-26] MEDS: insulin glargine (Lantus) pen - multi-dose SQ SCH (21:14)
[2021-01-27] MEDS: normal saline 1000ml 1,000 ML IV SCH (01:29)
[2021-01-27 02:00] VITALS: BP 113/80
--- NOTE | 2021-01-27 06:24 | NUR ---
Patient in room PCU 3024. I have received report from Princess PEPE and had the opportunity to ask questions and assume patient care. Pt stable, in bed, no sob, no s/sx acute distress.
--- NOTE | 2021-01-27 06:29 | NUR ---
Problems reprioritized. Patient report given, questions answered & plan of care reviewed with Lynnette PEPE.
[2021-01-27 07:00] VITALS: BP 143/90
--- NOTE | 2021-01-27 07:03 | NUR ---
Dr. Becker Called: . Dr. Becker called regarding pt disposition, if pt had received assignment of a bed at [facility] yet. informed no bed received at this time. Dr. Becker requesting to have continuous pillowcase cutter call him this am. will continue to advocate for pt and follow up.
[2021-01-27] MEDS: clopidogrel 75mg tablet PO SCH ×2 (08:00→08:35)
[2021-01-27] MEDS: K and/or MAG REPLACEMENT MC SCH (08:00)
--- NOTE | 2021-01-27 08:30 | NUR ---
Pt refused Plavix due to pending surgical procedure TBD time at [facility]. Called Dr. Paiz. Dr. Paiz ordered plavix be put on hold.
[2021-01-27] MEDS: amLODIPine 5mg tablet PO SCH (08:34)
[2021-01-27] MEDS: metoprolol tartrate 25mg tablet PO SCH (08:35)
[2021-01-27] MEDS: duloxetine 30mg CAPSULE.DR PO SCH (08:35)
[2021-01-27] MEDS: docusate sod 100mg capsule PO SCH ×2 (08:35→16:10)
[2021-01-27] MEDS: lactobacillus rhamnosus 10,000 MMU CELLS/CAPSULE PO SCH (08:35)
[2021-01-27] MEDS: lisinopril 20mg tablet PO SCH (08:35)
[2021-01-27] MEDS: atorvastatin 20mg tablet PO SCH (08:35)
[2021-01-27] MEDS: pantoprazole 40 MG vial IV SCH (08:36)
[2021-01-27] MEDS: piperacillin/tazo 3.375gm/50ml 50 ML IV SCH (08:36)
[2021-01-27 11:00] VITALS: BP 150/92
[2021-01-27] MEDS: insulin Lispro (HumaLOG) vial - multi-dose SQ SCH (13:29)
--- NOTE | 2021-01-27 14:52 | NUR ---
Initial: Pt admit DX obstructive jaundice r/t pancreatic carcinoma, possible GIB w/ epistaxis, aspiration PNA, T2DM, HTN, and complex CHD/CBD/hilar stricture per MD notes. Pt placed on clear liquid diet past 5 days PO 75-100% however not meeting needs given restrictive diet. Noted LBM 01/19 8 days constipation receiving routine colace w/ PRN MoM given this AM. RD d/w RN regarding additional bowel care for constipation as well as diet advancement to carb controlled if MD agreeable. RN reports pt transferring to [facility] today for GI procedure though if transfer delayed will encourage pt to take second dose of PRN MoM to assist bowel function. RD d/w RN recommends ensure clear ONS TIDWM if to remains on clear liquids this admit and MD agreeable for additional protein/kcals. Will continue to monitor for additional protein/kcal needs. Rec: 1. advance diet as medically indicated to carb controlled 2. IF to remain on restrictive clear liquid diet; ensure clear TIDWM for additional protein/kcals 3. routine bowel care; 8 days constipation 4. scaled wt this admit; subsequent weekly wts Addendum: 01/27/21 at [address] Amended: Links added.
[2021-01-27] MEDS: HYDROcodone/acetaminophen 10/325mg tab PO PRN (16:09)
--- NOTE | 2021-01-27 16:30 | NUR ---
Pt stable for discharge per MD orders. all discharge instructions explained to pt and questions answered. Meds called into [facility] on [address]. Pt to immediately drive with family friends to meet family in [facility] to go to [facility] for procedure tomorrow am at 11. PIV discontinued. cannula intact. bellhop discontinued. Pt packet given to pt. all belongings collected and pt wheeled to lobby accompanied by this nurse and two family friends where he loaded into private vehicle and left this facility. pt without s/sx acute distress. pt grateful for care (and discharge)
== END 2021-01-27 16:30 | disposition home or self-care (01) | DRG 435 ==
LOC: ER 13:32 → ED HOLD 15:01 → PCU 3S 01-21 11:05
PROVIDERS: ADMIT Family Medicine; ATTEND Family Medicine
PROC: 0F778DZ Dilation of Common Hepatic Duct with Intraluminal Device, Via Natural or Artificial Opening Endoscopic (ICD-10-PCS; principal; 2021-01-21 17:36)
PROC: 0F778ZZ Dilation of Common Hepatic Duct, Via Natural or Artificial Opening Endoscopic (ICD-10-PCS; 2021-01-22)
PROC: 0JH63WZ Insertion of Totally Implantable Vascular Access Device into Chest Subcutaneous Tissue and Fascia, Percutaneous Approach (ICD-10-PCS; 2021-01-22)
PROC: 02HV33Z Insertion of Infusion Device into Superior Vena Cava, Percutaneous Approach (ICD-10-PCS; 2021-01-22)
PROC: B548ZZA Ultrasonography of Superior Vena Cava, Guidance (ICD-10-PCS; 2021-01-22)
PROC: B5181ZA Fluoroscopy of Superior Vena Cava using Low Osmolar Contrast, Guidance (ICD-10-PCS; 2021-01-22)
PROC: 5A09357 Assistance with Respiratory Ventilation, Less than 24 Consecutive Hours, Continuous Positive Airway Pressure (ICD-10-PCS; 2021-01-25)
PROC: 5A09357 Assistance with Respiratory Ventilation, Less than 24 Consecutive Hours, Continuous Positive Airway Pressure (ICD-10-PCS; 2021-01-26)
DX: C25.9 Malignant neoplasm of pancreas, unspecified (principal); J69.0 Pneumonitis due to inhalation of food and vomit; K83.1 Obstruction of bile duct; K92.0 Hematemesis; E11.9 Type 2 diabetes mellitus without complications; E78.5 Hyperlipidemia, unspecified; F03.90 Unspecified dementia, unspecified severity, without behavioral disturbance, psychotic disturbance, mood disturbance, and anxiety; F32.9 Major depressive disorder, single episode, unspecified; I10 Essential (primary) hypertension; Z20.822 Contact with and (suspected) exposure to COVID-19; G47.30 Sleep apnea, unspecified; I25.10 Atherosclerotic heart disease of native coronary artery without angina pectoris; K21.9 Gastro-esophageal reflux disease without esophagitis; Z79.02 Long term (current) use of antithrombotics/antiplatelets; Z79.4 Long term (current) use of insulin; Z79.899 Other long term (current) drug therapy; Z80.42 Family history of malignant neoplasm of prostate; Z82.3 Family history of stroke; Z82.49 Family history of ischemic heart disease and other diseases of the circulatory system; Z90.49 Acquired absence of other specified parts of digestive tract; Z98.42 Cataract extraction status, left eye; Z98.41 Cataract extraction status, right eye
CPT/HCPCS: 36415; 36561; 43260; 74018; 76937; 80053; 80061; 81001; 82948; 83036; 83605; 83690; 83735; 84100; 84132; 84145; 85025; 85027; 86885; 86900; 86901; 87040; 87081; 87635; 93306; 97116; 97162; 99152; 99153; 99285; A4618; A4620; C1726; C1768; C1769; C1788; C1894; C9113; G0378; J1170; J1200; J1610; J1642; J1644; J1650; J1815; J2250; J2270; J2543; J2704; J2710; J3010; J3490; J7030; J7040; Q9967